=== PATIENT | female | born 1965 | race Caucasian/White ===

== ENCOUNTER 2024-03-07 19:04 | Emergency (ER) | payer SELFPAY ==
[2024-03-07 19:18] VITALS: BP 102/41; TEMP 36.4; O2SAT 100; BMI 26.6
--- NOTE | 2024-03-07 19:34 | XR_ITS ---
The [address] [address] Patient Name: LYSSA OLIVEIRA MRN: [id number] date: 1965 Sex: F Assigned Patient Location: ER Current Patient Location: ER Accession/Order Number: [id number] Exam Date: 03/07/2024 20:00 Report Date: 03/07/2024 21:03 At the request of: SYED VELA Procedure: XR humerus RT XR humerus RT, 03/07/2024 7:00 PM CDT: History: Fall. . Comparison: None. Technique: 2 views right humerus Findings/Impression: There is no displaced fracture or malalignment. The soft tissues are within normal limits. Electronically authenticated by: CACHORRO CERDA Date: 03/07/2024 21:03
--- NOTE | 2024-03-07 19:34 | XR_ITS ---
The [address] [address] Patient Name: LYSSA OLIVEIRA MRN: [id number] date: 1965 Sex: F Assigned Patient Location: ER Current Patient Location: ED.MAIN Accession/Order Number: [id number] Exam Date: 03/07/2024 20:00 Report Date: 03/07/2024 21:20 At the request of: SYED VELA Procedure: XR elbow RT min 3V XR elbow RT min 3V, 03/07/2024 7:00 PM CDT: History: Fall. . Comparison: None. Technique: 3 views right elbow Findings/Impression: The exam is limited by patient positioning. There is no definite acute fracture or malalignment of the bones of the right elbow. There is a punctate foreign body within the soft tissues posterior to the olecranon measuring 1.8 mm. There is no definite elbow joint effusion. Electronically authenticated by: CACHORRO CERDA Date: 03/07/2024 21:20
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
--- NOTE | 2024-03-07 19:36 | PC.NURSE ---
Right elbow wound cleansed with Hibicleanse and dry dressing applied.
[2024-03-07] MEDS: ONDANSETRON PF 4 MG/2 ML VIAL IV (19:47)
[2024-03-07] MEDS: FENTANYL CITRATE/PF 100 MCG/2 ML VIAL 75 MCG IV (19:49)
[2024-03-07] MEDS: LIDOCAINE HCL 1%-EPINEPHRINE 1:100,000 20 ML MDV INJ (19:52)
[2024-03-07] MEDS: BACITRACIN 0.9 GM PACKET 1 PACKET TOPICAL (19:53)
[2024-03-07] MEDS: HYDROMORPHONE HCL 0.5 MG/0.5 ML SYRINGE IV (21:03)
[2024-03-07] MEDS: CEPHALEXIN 500 MG CAPSULE PO (21:57)
[2024-03-07] MEDS: OXYCODONE HCL/ACETAMINOPHEN 5MG/325MG 2 TAB PO (21:58)
[2024-03-07] MEDS: METHOCARBAMOL 500 MG TABLET 1000 MG PO (21:58)
[2024-03-07] MEDS: ADACEL DIPH,PERTUSS(ACELL),TET VAC/PF 0.5 ML ADULT SYRINGE IM (21:58)
[2024-03-07 22:06] VITALS: BP 116/45
== END 2024-03-07 22:11 | disposition home or self-care (01) ==
PROVIDERS: Emergency Provider Emergency Medicine; PCP Family Medicine
DX: S51.011A Laceration without foreign body of right elbow, initial encounter (principal); M79.601 Pain in right arm; Z23 Encounter for immunization; V00.141A Fall from scooter (nonmotorized), initial encounter
CPT/HCPCS: 12002; 73060; 73080; 90471; 90715; 96374; 96375; 99284; J1170; J2405; J3010